=== PATIENT | male | born 1955 | race Caucasian/White ===

== ENCOUNTER 2024-02-26 05:57 | Emergency (ER) | payer MEDICARE, OTHER, SELFPAY ==
[2024-02-26 06:08] VITALS: BP 127/88; PULSE 79; RESP 15; TEMP 36.2; O2SAT 95; BMI 27.9
[2024-02-26] MEDS: LIDOCAINE 1% 20 ML INJ (06:32)
--- NOTE | 2024-02-26 07:16 | ED.WOUNDLAC ---
HPI - Wound/Laceration General Chief Complaint: Wound/Laceration Stated Complaint: left ear injury Time Seen by Provider: 02/26/24 06:22 Source: patient Mode of arrival: Ambulatory History of Present Illness HPI narrative: Patient is a 68-year-old male. Not on anticoagulation who is here for evaluation a ear laceration. He states that he accidentally hit his ear on a fence post. Sustained a laceration to the ear. No other injuries from the event. No loss of consciousness. She was up-to-date on his tetanus. Covered it with a bandage prior to arrival but no other intervention. Related Data Home Medications Medication Instructions Recorded Confirmed tamsulosin 0.4 mg capsule 0.4 mg PO DAILY 02/26/24 02/26/24 Previous Rx's Medication Instructions Recorded amoxicillin 875 mg-potassium 1 tab PO BID 7 days #14 tabs 02/26/24 clavulanate 125 mg tablet Allergies Allergy/AdvReac Type Severity Reaction Status Date / Time No Known Drug Allergies Allergy Verified 02/26/24 06:07 Review of Systems ENT Ears, Nose, Mouth, and Throat: Reports system reviewed and no additional complaints, except as documented Integumentary/Breasts Skin/Breast: Reports system reviewed and no additional complaints, except as documented Patient History Social History Smoking Status: Never smoker Smoking Status: Never smoker alcohol intake frequency: holidays/special occasions only Substance Use Type: does not use Exam Initial Vital Signs Initial Vital Signs: Vital Signs Temperature 97.2 F L 02/26/24 06:08 Pulse Rate 79 02/26/24 06:08 Respiratory Rate 15 02/26/24 06:08 Blood Pressure 127/88 02/26/24 06:08 Pulse Oximetry 95 02/26/24 06:08 Oxygen Delivery Method Room Air 02/26/24 06:08 Const General: cooperative, comfortable and No ill appearing HENHI Ears: other (Laceration to left ear) Skin Other: Patient with a very complex laceration to the front of the left ear. There was no cartilage involvement Procedures Laceration Repair Laceration 1: Site: other (Ear) Side (If applicable): left Size (cm): 8 Description: flap, irregular and clean Depth: simple, single layer Local Anesthetic: lidocaine 1% Amount of anesthesia used (mL): 5 Pre-repair: wound explored and deep structures intact Skin layer closed with: nylon Skin layer suture size: 5-0 Number of sutures: 28 Technique: simple, interrupted Course Orders Ordered: Discontinued Medications Bacitracin (Bacitracin Oint 0.9 Gm Pckt) 1 applic TOP NOW ONE Stop: 02/26/24 07:22 Lidocaine HCl (Lidocaine 1% 20 Ml) 20 ml INJ INTRA-OP ONE Stop: 02/26/24 06:27 Last Admin: 02/26/24 06:32 Dose: 20 ml Documented By: AB Vital Signs Vital signs: Vital Signs - 8 hr 02/26/24 06:08 Temperature 97.2 F L Pulse Rate 79 Respiratory Rate 15 Blood Pressure 127/88 Pulse Oximetry 95 Oxygen Delivery Method Room Air MDM - Wound/Laceration MDM Narrative Medical decision making narrative: Very complex laceration to the left ear. There is no cartilage involvement. The wound was closed as described above. A slight pressure dressing was placed over the area. Will place the patient on antibiotics given the cartilage exposure. I did recommend that he follow-up with ENT and he was given information for this. He was given care instructions and return precautions. He expressed understanding and agreement. Discharge Plan Departure Patient Disposition: Home Clinical Impression: Laceration Instructions: DI for Laceration Repair Activity Restrictions/Additional Instructions: Please take the antibiotic as directed. I would leave the dressing that was placed today in place for the next 24 hours. After that you can take it off. You can shower like normal. You can put topical antibiotic over the area. The stitches do need to be removed in 7-10 days. I recommend that you contact the ENT provider (Dr. Hawkins) for a follow-up. Return emergency department for new symptoms. Prescriptions: New amoxicillin-pot clavulanate 875-125 mg tablet 1 tab PO BID 7 Days Qty: 14 0RF No Action tamsulosin 0.4 mg capsule 0.4 mg PO DAILY Referrals: Toby Hawkins MD [Physician] - Stand Alone Forms: Patient Portal/API
--- NOTE | 2024-02-26 07:44 | PC.NURSE ---
bacitracin and non-stick gauzed placed over wound. Pt tolerated wound care. Ambulated out of dept with steady gait.
[2024-02-26 07:45] VITALS: BP 130/84; PULSE 80; RESP 20; O2SAT 100
== END 2024-02-26 07:47 | disposition home or self-care (01) ==
PROVIDERS: Emergency Provider Emergency Medicine
DX: S01.312A Laceration without foreign body of left ear, initial encounter (principal); W22.8XXA Striking against or struck by other objects, initial encounter
CPT/HCPCS: 12015; 99282; 99283